=== PATIENT | female | born 1980 | race Caucasian/White ===

== ENCOUNTER 2018-05-21 20:24 | Emergency (ER) | payer OTHER ==
[~2018-05-21] VITALS: Ht 162.6 cm; Wt 65.8 kg
[~2018-05-21 20:24] MED LIST: AMOX875 PO; Augmentin 875-1 EACH PO; CARI350 PO; CYCL10 PO; DIAZ5; DIAZ5 PO; Guaifenesin-Co118 ML PO; HYDACE5 PO; IBUHYD; IBUP400 PO; IBUP600 PO; NAPR500 PO; OXYACE5T PO; OXYC10TA19 PO; Percocet 5-3251 EACH PO; RXCYCL10 PO; RXHYDACE PO; TRAM50 PO
[2018-05-22] MEDS ORDERED: Vistaril50 MG PO (16:05)
== END 2018-05-21 21:07 | disposition home or self-care (01) ==
LOC: ER 20:24
DX: L50.9 Urticaria, unspecified (principal)
CPT/HCPCS: 96372; 99283-25; J3301; Q0163

== ENCOUNTER 2018-05-22 13:12 | Emergency (ER) | payer OTHER ==
[~2018-05-22] VITALS: Ht 162.6 cm; Wt 68.0 kg
[2018-05-22 14:02] LABS: BASOPHILS ABSOLUTE AUTO 0.05 K/mm3 (0.00-0.23); BASOPHILS PERCENT AUTO 1 % (0-2); EOSINOPHILS ABSOLUTE AUTO 0.18 K/mm3 (0.00-0.68); EOSINOPHILS PERCENT AUTO 3 % (0-6); Hematocrit 42.2 % (33.0-51.0); IMMATURE GRAN ABSOLUTE AUTO 0.02 K/mm3 (0.00-0.10); IMMATURE GRAN PERCENT AUTO 0 % (0-1); LYMPHOCYTES ABSOLUTE AUTO 1.28 K/mm3 (0.84-5.20); LYMPHOCYTES PERCENT AUTO 21 % (21-46); MONOCYTES PERCENT AUTO 8 % (4-13); Mean Corpuscular HGB 31.7 pg (26.0-34.0); Mean Corpuscular HGB Conc 33.2 g/dL (31.5-36.5); Mean Corpuscular Volume 96 fL (80-100); Mean Platelet Volume 9.8 fL (9.1-12.4); NEUTROPHILS ABSOLUTE AUTO 4.13 K/mm3 (1.96-9.15); NEUTROPHILS PERCENT AUTO 67 % (41-73); Platelet Count 189 K/mm3 (150-400); RDW Coefficient Variation 12.3 % (11.7-14.2); RDW Standard Deviation 42.9 fL (35.1-46.3); Red Blood Cell Count 4.42 M/mm3 (3.80-5.20); White Blood Cell Count 6.16 K/mm3 (4.00-11.30)
[2018-05-22 14:22] LABS: D-Dimer, Quantitative 0.36 mg/L FEU (0.00-0.52)
[2018-05-22 14:23] LABS: International Normalized Ratio 0.97; Prothrombin Time Results 10.3 Sec (9.7-11.5)
[2018-05-22 14:46] LABS: Alanine Aminotransfer (ALT/SGP 30 U/L (12-78); Albumin, Blood 4.3 g/dL (3.4-5.0); Albumin/Globulin Ratio 1.2 (0.8-1.8); Alk Phos 48 U/L (50-136); Anion Gap 6 mmol/L (6-16); Aspartate Aminotrans (AST/SGOT 22 U/L (12-37); Bilirubin, Total 0.6 mg/dL (0.1-1.0); Blood Urea Nitrogen 10 mg/dL (8-24); Bun/Creatinine Ratio 10.9 (12.0-20.0); CO2, Blood 26 mmol/L (21-32); Calcium, Blood 8.4 mg/dL (8.5-10.1); Chloride, Blood 108 mmol/L (98-108); Creatinine, Blood 0.92 mg/dL (0.40-1.00); Globulin, Blood 3.6 g/dL (2.2-4.0); Glomerular Filtration Rate >60 (60-); Glucose, Blood 83 mg/dL (70-99); Potassium, Blood 3.6 mmol/L (3.5-5.5); Sodium, Blood 140 mmol/L (136-145); Total Protein, Blood 7.9 g/dL (6.4-8.2)
[2018-05-22 15:09] LABS: Appearance, Urine Clear (Clear); Bilirubin, Urine Neg (Neg); Blood, Urine Neg (Neg); Color, Urine Yellow (P-Yellow); Glucose Qualitative, Urine Neg (Neg); Ketones, Urine 1+ (Neg); Leukocyte Esterase, Urine Neg (Neg); Nitrite, Urine Neg (Neg); Protein, Urine Neg (Neg); Source, Urine Clean Catch; Urobilinogen, Urine NORM (Normal)
[2018-05-22] MEDS ORDERED: Vistaril50 MG PO (16:05)
== END 2018-05-22 16:23 | disposition home or self-care (01) ==
LOC: ER 13:12
PROVIDERS: Emergency Medicine; Physician Assistant
DX: I77.6 Arteritis, unspecified (principal); Z88.1 Allergy status to other antibiotic agents
CPT/HCPCS: 36415; 80053; 81003; 85025; 85379; 85384; 85610; 87081; 87430; 99283

== ENCOUNTER → 2022-07-26 | Outpatient (CLI) | payer OTHER ==
[~2022-07-26] MED LIST changes: +Vistaril50 MG PO
[2022-07-29 15:08] LABS: HPV 16 Negative (Negative); HPV 18 Negative (Negative); HPV OTHER HR TYPES Negative (Negative)
== END | disposition home or self-care (01) ==
LOC: LAB SHORT 12:32 → LAB 12:32
PROVIDERS: Advanced Practice Midwife
DX: Z01.419 Encounter for gynecological examination (general) (routine) without abnormal findings (principal)
CPT/HCPCS: 87624; G0145

== ENCOUNTER 2023-12-12 10:36 | Emergency (ER) | payer OTHER ==
[~2023-12-12] VITALS: Ht 160 cm; Wt 59.0 kg
[2023-12-12] MEDS ORDERED: Ketorolac Tromethamine 15mg Vial IV ONE (12:10)
[2023-12-12] MEDS ORDERED: DiphenhydrAMINE HCl 50 MG/ML 1ML Vial IV ONE (12:10)
[2023-12-12] MEDS ORDERED: Prochlorperazine Edisylate 10 mg Vial IV ONE (12:10)
[2023-12-12 12:33] LABS: BASOPHILS ABSOLUTE AUTO 0.03 K/mm3 (0.00-0.23); BASOPHILS PERCENT AUTO 1 % (0-2); EOSINOPHILS ABSOLUTE AUTO 0.01 K/mm3 (0.00-0.68); EOSINOPHILS PERCENT AUTO 0 % (0-6); Hematocrit 46.3 % (33.0-51.0); Hemoglobin 15.9 g/dL (11.5-16.0); IMMATURE GRAN PERCENT AUTO 0 % (0-1); LYMPHOCYTES ABSOLUTE AUTO 0.79 K/mm3 (0.84-5.20); LYMPHOCYTES PERCENT AUTO 25 % (21-46); MONOCYTES ABSOLUTE AUTO 0.81 K/mm3 (0.16-1.47); MONOCYTES PERCENT AUTO 26 % (4-13); Mean Corpuscular HGB 31.1 pg (26.0-34.0); Mean Corpuscular HGB Conc 34.3 g/dL (31.5-36.5); Mean Corpuscular Volume 91 fL (80-100); Mean Platelet Volume 9.4 fL (9.1-12.4); NEUTROPHILS PERCENT AUTO 48 % (41-73); Platelet Count 178 K/mm3 (150-400); RDW Coefficient Variation 12.1 % (11.7-14.2); RDW Standard Deviation 40.3 fL (35.1-46.3); Red Blood Cell Count 5.11 M/mm3 (3.80-5.20); White Blood Cell Count 3.14 K/mm3 (4.00-11.30)
[2023-12-12 12:53] LABS: Bun/Creatinine Ratio 10.6 (12.0-20.0); Calcium, Blood 8.8 mg/dL (8.5-10.1); Creatinine, Blood 0.94 mg/dL (0.40-1.00); Potassium, Blood 3.9 mmol/L (3.5-5.5)
[2023-12-12 13:00] VITALS: BP 111/82
[2023-12-12] MEDS ORDERED: ACET500 PO (13:22)
[2023-12-12] MEDS ORDERED: IBUP600 PO (13:22)
[2023-12-12] MEDS ORDERED: AMOCLA875 PO (13:22)
[2023-12-12] MEDS ORDERED: ONDA4ODT MM (13:22)
== END 2023-12-12 13:36 | disposition home or self-care (01) ==
LOC: ER 10:36
PROVIDERS: Emergency Medicine
DX: R51.9 Headache, unspecified (principal); H66.91 Otitis media, unspecified, right ear; Z88.1 Allergy status to other antibiotic agents
CPT/HCPCS: 70450; 80048; 85025; 96374; 96375; 99284-25; J0780; J1200; J1885